=== PATIENT | female | born 1975 | race Caucasian/White ===

== ENCOUNTER 2022-08-06 17:28 | Emergency (ER) | payer MEDICARE ==
[~2022-08-06] VITALS: Ht 172.7 cm; Wt 90.7 kg
--- NOTE | 2022-08-06 17:45 | NUR ---
[facility] C/O abdminal pain for 3MOS. PLACED IN BED, AAOX4, BREATHING EVEN AND UNLABORED, IN PAIN 5/10 PS.
[2022-08-06 17:49] VITALS: BP 118/68
--- NOTE | 2022-08-06 17:55 | NUR ---
[employer] AT BEDSIDE
[2022-08-06] MEDS ORDERED: IV NS 0.9% 1,000 ML BAG IV ONE (18:00)
[2022-08-06 18:16] LABS: BASOPHILS # (AUTO) 0.1 K/uL (0.0-0.2); BASOPHILS % (AUTO) 1.1 % (0.0-2.0); EOSINOPHILS % (AUTO) 2.8 % (0.0-6.0); HEMATOCRIT 38 % (33-45); LYMPHOCYTES # (AUTO) 2.4 K/uL (0.8-4.8); LYMPHOCYTES % (AUTO) 33.4 % (20.0-44.0); MEAN CORPUSCULAR HGB CONC 32 g/dl (31.0-36.0); MEAN CORPUSCULAR VOLUME 78 fL (82-100); MONOCYTES # (AUTO) 0.4 K/uL (0.1-1.30); MONOCYTES % (AUTO) 6.2 % (2.0-12.0); NEUTROPHILS % (AUTO) 56.5 % (43.0-81.0); RED BLOOD CELL COUNT(AUTO) 4.87 MIL/uL (4.0-5.2); WHITE BLOOD COUNT (AUTO) 7.1 K/uL (4.3-11.0)
--- NOTE | 2022-08-06 18:21 | NUR ---
PATIENT TAKEN TO CT VIA [facility]UDI
[2022-08-06 19:03] LABS: PLATELET COUNT (AUTO) 306 K/uL (150-450)
[2022-08-06 19:28] LABS: ALBUMIN 3.7 g/dL (3.4-5.0); BILIRUBIN,DIRECT 0.1 mg/dL (0.0-0.2); BILIRUBIN,TOTAL 0.2 mg/dL (0.2-1.0); CALCIUM, SERUM 9.2 mg/dL (8.5-10.1); CREATININE 0.8 mg/dL (0.6-1.3); POTASSIUM 4.1 mmol/L (3.5-5.1); TOTAL PROTEIN, SERUM 7.6 g/dL (6.4-8.2)
--- NOTE | 2022-08-06 19:56 | NUR ---
TRANSPORT BY [facility] ETA 2030
--- NOTE | 2022-08-06 20:20 | NUR ---
[facility] AT PT'S BEDSIDE TO DC PT. IV removed. Catheter intact and site benign. Pressure and 4x4 applied to site. No bleeding noted.
== END 2022-08-06 20:25 ==
LOC: EDBD → ER 17:30
DX: K80.20 Calculus of gallbladder without cholecystitis without obstruction (principal); I10 Essential (primary) hypertension
CPT/HCPCS: 99284; 74176; 96360; 96361; 85025; 80048; 83690; 80076; 36415; J7030